=== PATIENT | female | born 2000 | race African-American/Black ===

== ENCOUNTER 2022-08-01 09:20 | Emergency (ER) | payer MEDICARE ==
[~2022-08-01] VITALS: Ht 170.2 cm; Wt 68.0 kg
[2022-08-01] MEDS ORDERED: LORAZEPAM 0.5MG TABLET PO ONE (10:15)
[2022-08-01] MEDS ORDERED: ONDANSETRON HCL 4MG/2ML INJ IV ONE ×2 (10:15→16:00)
[2022-08-01 10:30] LABS: BASOPHILS % 0.4 % (0.0-2.0); EOSINOPHILS % 0.1 % (0.0-5.0); HEMATOCRIT. 38.5 % (36.0-48.0); LYMPHOCYTES % 11.9 % (20.0-50.0); MEAN CORPUSCULAR HEMOGLOBIN 29.6 pg (28.0-32.0); MEAN CORPUSCULAR VOLUME 87.8 fL (81.0-99.0); MEAN PLATELET VOLUME 9.8 fl (7.4-10.4); NEUTROPHILS % 84.6 % (40.0-76.0); PLATELET 332 x1000/uL (130-400); RED BLOOD CELL COUNT 4.39 mill/uL (4.2-5.4); RED CELL DISTRIBUTION WIDTH 14.3 % (11.6-14.6)
[2022-08-01 10:36] LABS: CHLORIDE 108 mEq/L (98-107)
[2022-08-01 10:44] LABS: HCG SCREEN NEGATIVE
[2022-08-01 10:50] LABS: ETHANOL BLOOD < 10 mg/dL
[2022-08-01 12:04] VITALS: BP 112/58
== END 2022-08-01 16:28 | disposition home or self-care (01) ==
LOC: ER 09:20
DX: F41.9 Anxiety disorder, unspecified (principal); I49.9 Cardiac arrhythmia, unspecified
CPT/HCPCS: 36415; 80053; 80307; 80320; 80329; 83690; 84443; 84703; 85025; 93005; 96374; 96376; 99284; J2405; G0480

== ENCOUNTER 2022-09-20 04:28 | Emergency (ER) | payer MEDICARE ==
[~2022-09-20] VITALS: Ht 170.2 cm; Wt 73.0 kg
[2022-09-20] MEDS ORDERED: KETOROLAC 30MG/ML VIAL IV STA (05:21)
[2022-09-20] MEDS ORDERED: ONDANSETRON HCL 4MG/2ML INJ IV STA (05:21)
[2022-09-20] MEDS ORDERED: SODIUM CHLORIDE 0.9% 1,000 ML IV ONE (05:30)
[2022-09-20 06:25] LABS: BASOPHILS % 0.5 % (0.0-2.0); EOSINOPHILS % 0.8 % (0.0-5.0); HEMATOCRIT. 35.5 % (36.0-48.0); HEMOGLOBIN. 12.2 g/dL (12.0-16.0); MEAN CORPUSCULAR HEMOGLOBIN 29.4 pg (28.0-32.0); MEAN CORPUSCULAR VOLUME 85.6 fL (81.0-99.0); MEAN PLATELET VOLUME 9.7 fl (7.4-10.4); NEUTROPHILS % 42.7 % (40.0-76.0); PLATELET 256 x1000/uL (130-400); RED BLOOD CELL COUNT 4.15 mill/uL (4.2-5.4); RED CELL DISTRIBUTION WIDTH 13.2 % (11.6-14.6)
[2022-09-20 06:33] LABS: HCG SCREEN NEGATIVE
[2022-09-20 06:38] LABS: CHLORIDE 107 mEq/L (98-107)
[2022-09-20 08:00] VITALS: BP 115/58
[2022-09-20 08:10] LABS: CLARITY URINE CLEAR (CLEAR); COLOR URINE DARK YELLOW (YELLOW); KETONES URINE 2+ (NEGATIVE); LEUKOCYTE ESTERASE URINE NEGATIVE (NEGATIVE); NITRITE URINE NEGATIVE (NEGATIVE); OCCULT BLOOD URINE NEGATIVE (NEGATIVE); PH URINE 7.5 (4.5-8.0); PROTEIN URINE 1+ (NEGATIVE); SPECIFIC GRAVITY URINE 1.027 (1.005-1.030)
[2022-09-20] MEDS ORDERED: IBUP-2028 PO (08:28)
[2022-09-20] MEDS ORDERED: ONDA4TAB50 PO (08:28)
== END 2022-09-20 10:00 | disposition home or self-care (01) ==
LOC: ER 04:28
DX: R10.84 Generalized abdominal pain (principal); N83.202 Unspecified ovarian cyst, left side; N83.201 Unspecified ovarian cyst, right side
CPT/HCPCS: 36415; 74176; 76856; 80053; 81003; 83690; 84703; 85025; 96361; 96374; 96375; 99284; J1885; J2405; J7030

== ENCOUNTER 2023-05-10 09:04 | Emergency (ER) | payer MEDICARE ==
[~2023-05-10] VITALS: Ht 167.6 cm; Wt 74.0 kg
[~2023-05-10 09:04] MED LIST: IBUP-2028 PO; ONDA4TAB50 PO; TOPUD PO
[2023-05-10 09:07] VITALS: O2SAT 100
[2023-05-10] MEDS ORDERED: ONDANSETRON HCL 4MG/2ML INJ IV STA (09:47)
[2023-05-10] MEDS ORDERED: LORAZEPAM 1MG TABLET PO ONE (10:15)
[2023-05-10] MEDS ORDERED: ONDA4TAB50 PO (11:00)
[2023-05-10 11:04] VITALS: BP 112/57; PULSE 67; RESP 18; TEMP 98.4
== END 2023-05-10 11:18 | disposition home or self-care (01) ==
LOC: ER 09:04
DX: F41.9 Anxiety disorder, unspecified (principal); R11.2 Nausea with vomiting, unspecified
CPT/HCPCS: 80320; 36415; 96374; 99283; J2405; G0480

== ENCOUNTER 2023-08-31 08:06 | Emergency (ER) | payer MEDICARE ==
[2023-08-31] MEDS ORDERED: MORPHINE SULFATE 4 MG/ML CPJ (NOT FOR IM USE) IV STA (09:17)
[2023-08-31] MEDS ORDERED: FAMOTIDINE 20MG/2ML VIAL IV STA (09:17)
[2023-08-31] MEDS ORDERED: ONDANSETRON HCL 4MG/2ML INJ IV STA (09:17)
[2023-08-31] MEDS ORDERED: SODIUM CHLORIDE 0.9% 1,000 ML IV ONE (09:30)
[2023-08-31 09:50] VITALS: BP 118/74; PULSE 89; RESP 18; TEMP 98.6
[2023-08-31 10:07] LABS: BASOPHILS % 0.2 % (0.0-2.0); EOSINOPHILS % 0.1 % (0.0-5.0); HEMOGLOBIN. 12.5 g/dL (12.0-16.0); LYMPHOCYTES % 8.5 % (20.0-50.0); MEAN CORPUSCULAR HGB CONC 33.8 g/dL (31.0-37.0); MEAN CORPUSCULAR VOLUME 88.7 fL (81.0-99.0); MEAN PLATELET VOLUME 10.6 fl (7.4-10.4); MONOCYTES % 2.4 % (2.0-8.0); NEUTROPHILS % 88.8 % (40.0-76.0); PLATELET 268 x1000/uL (130-400); RED BLOOD CELL COUNT 4.17 mill/uL (4.2-5.4); RED CELL DISTRIBUTION WIDTH 14.3 % (11.6-14.6); WHITE BLOOD COUNT 9.7 x1000/uL (4.5-11.0)
[2023-08-31 10:08] LABS: CHLORIDE 107 mEq/L (98-107); INDEX HEMOLYSI 1 (1-3); INDEX ICTERIC 1 (1-4); INDEX LIPEMIC 1 (1-3); POTASSIUM 3.3 mEq/L (3.5-5.1); SODIUM 139 mEq/L (136-145)
[2023-08-31 10:17] LABS: ALANINE AMINOTRANSFERASE 13 IU/L (13-61); ASPARTATE AMINOTRANSFERASE 13 IU/L (15-37); BILIRUBIN TOTAL 0.4 mg/dL (0.1-1.0); CALCIUM 8.7 mg/dL (8.5-10.1); CARBON DIOXIDE 23 mEq/L (21-32); CREATININE 0.5 mg/dL (0.6-1.3); GLUCOSE 145 mg/dL (70-105); PROTEIN TOTAL 7.9 g/dL (6.0-8.3); UREA NITROGEN BLOOD 14 mg/dL (7-21)
[2023-08-31] MEDS ORDERED: METOCLOPRAMIDE HCL 10MG/2ML VIAL IV ONE (10:45)
[2023-08-31] MEDS ORDERED: MAGNESIUM/ALUMINUM HYDROXIDE/SIMETHICONE 30ML UDC PO STA (10:45)
[2023-08-31 11:06] LABS: HCG SCREEN NEGATIVE
== END 2023-08-31 11:30 | disposition left against medical advice (07) ==
LOC: ER 08:06
DX: R10.9 Unspecified abdominal pain (principal); R11.2 Nausea with vomiting, unspecified; F12.10 Cannabis abuse, uncomplicated; Z53.21 Procedure and treatment not carried out due to patient leaving prior to being seen by health care provider
CPT/HCPCS: 80053; 81025; 84703; 83690; 85025; 86850; 86900; 86901; 36415; 71045; 96361; 96374; 96375; 99284; J3490; J2765; J2405; J2270; J7030; Z7610 ×2